=== PATIENT | female | born 2005 | race Caucasian/White ===

== ENCOUNTER 2023-02-06 14:29 | Outpatient (OUT) | payer OTHER, SELFPAY ==
[2023-02-06 16:15] LABS: Basophils Percent Auto 0.3 % (0.2-2.0); Eosinophils Absolute Auto 0.1 10^3/uL (0.0-0.7); Eosinophils Percent Auto 1.1 % (0.9-7.0); Hematocrit 35.5 % (36.0-48.0); Immature Granulocytes Abs Auto 0.04 10^3/uL (0.00-0.03); Immature Granulocytes Pct Auto 0.4 % (0.0-0.5); Lymphocytes Absolute Auto 1.8 10^3/uL (1.2-3.8); Lymphocytes Percent Auto 19.5 % (20.5-60.0); Mean Corpuscular HGB Conc 33.8 g/dL (29.9-35.2); Mean Corpuscular Hemoglobin 29.3 pg (26.7-34.0); Mean Corpuscular Volume 86.8 fL (81.0-99.0); Mean Platelet Volume 11.1 fL (9.5-13.5); Monocytes Absolute Auto 0.4 10^3/uL (0.3-0.8); Monocytes Percent Auto 4.6 % (1.7-12.0); Neutrophils Absolute Auto 6.7 10^3/uL (1.4-6.5); Neutrophils Percent Auto 74.1 % (43.0-75.0); Platelet Count 280 10^3/uL (150-450); Red Blood Count 4.09 10^6/uL (4.20-5.40); Red Cell Distribution Width 13.2 % (11.0-15.0)
[2023-02-06 16:31] LABS: Estimated Average Glucose 100 mg/dL; Glycohemoglobin A1C 5.1 % (4.5-6.2)
[2023-02-06 16:43] LABS: Glucose 1 Hour 149 mg/dL; Thyroid Stimulating Hormone 1.954 uIU/mL (0.516-4.130)
[2023-02-08 06:08] LABS: HBsAg Screen Negative (Negative); HCV Ab Non Reactive (Non Reactive); HIV Ab/p24 Ag Screen Non Reactive (Non Reactive)
[2023-02-08 07:08] LABS: Rubella Antibodies, IgG 1.05 index (Immune >0.99)
[2023-02-08 10:08] LABS: Rapid Plasma Reagin, Quant Non Reactive (NonRea<1:1)
== END 2023-02-06 14:30 | disposition home or self-care (01) ==
PROVIDERS: Visit Provider Obstetrics & Gynecology
DX: N91.2 Amenorrhea, unspecified (principal); Z13.1 Encounter for screening for diabetes mellitus
CPT/HCPCS: 36415; 82950; 83036; 84443; 85025; 86592; 86762; 86803; 86850; 86900; 86901; 87086; 87340; 87389

== ENCOUNTER 2023-02-08 13:53 | Outpatient (OUT) | payer OTHER, SELFPAY ==
--- NOTE | 2023-02-08 13:58 | US_ITS ---
[address] [address] Patient Name: COURT FONTANEZ MRN: [facility]:[id number] date: 2005 Sex: F Assigned Patient Location: US Current Patient Location: US Accession/Order Number: [id number] Exam Date: 02/08/2023 14:00 Report Date: 02/10/2023 10:04 At the request of: REBEL MOSS Procedure: US OB anatomy EXAMINATION: US OB anatomy HISTORY: ANATOMY Z34.92 COMPARISON: No relevant comparison available. TECHNIQUE: Transabdominal sonographic examination was performed for obstetrical and evaluation. FINDINGS: Number: 1 Heart Rate: 134.3 bpm H.B. /min Amniotic Fluid Volume: Subjectively normal Placental Location: ANTERIOR, grade 2; lower margin could not gate be identified during transabdominal evaluation. Cervix Length: Not performed. ANATOMY: Normal Structures - choroid plexus, orbits, midline falx, hard palate, four-chamber heart, RVOT, LVOT, stomach, kidneys, bladder, three-vessel cord, cervical spine, thoracic spine, lumbar spine, sacral spine, right upper extremity, left upper extremity, right lower extremity, left lower extremity. SUBOPTIMALLY SEEN: Lateral ventricles, cerebellum, posterior fossa, abdominal cord insertion ABNORMALITIES: Dilated right renal pelvis, 8 mm in diameter. BIOMETRY: BPD: 8.3 cm 33 weeks 2 days ; 8% HC: 30.7 cm 34 weeks 1 days; 4% AC: 28.1 cm 32 weeks 1 days; <3% FL: 6.2 cm 32 weeks 0 days; <3% EFW:1970.0 grams; <3% FL/AC: 21.9 FL/BPD: 74.6 HC/AC: 1.1 GESTATIONAL AGE: Age by EDC: 35 weeks 2 days EBONY by EDC: 03/13/2023 Age by current US: 32 weeks 6 days EBONY by current US: 03/30/2023 IMPRESSION: 1. Single live intrauterine with growth detailed above. 2. Estimated weight is less than 3rd percentile. 3. Suboptimal visualization of the lateral ventricles, cerebellum, posterior fossa, and abdominal cord insertion due to gestational age and position. 4. Lower margin of anterior placenta could not be identified, and cervical length was not evaluated since patient declined endovaginal ultrasound imaging. Electronically authenticated by: GEOFF APONTE Date: 02/10/2023 10:04
== END 2023-02-08 13:54 | disposition home or self-care (01) ==
PROVIDERS: Visit Provider Obstetrics & Gynecology
DX: Z34.92 Encounter for supervision of normal pregnancy, unspecified, second trimester (principal)
CPT/HCPCS: 76805

== ENCOUNTER 2023-02-13 14:44 | Outpatient (REF) | payer OTHER, SELFPAY | END 2023-02-13 14:45 | disposition home or self-care (01) | LOC: LAB 14:44 | PROVIDERS: PCP Physician Assistant; Visit Provider Physician Assistant | DX: O99.891 Other specified diseases and conditions complicating pregnancy (principal); Z3A.00 Weeks of gestation of pregnancy not specified; N89.8 Other specified noninflammatory disorders of vagina | CPT/HCPCS: 87081 ==

== ENCOUNTER 2023-03-13 04:55 | Inpatient (IN) | payer OTHER, SELFPAY ==
[2023-03-13] VITALS (25 sets, daily range): BP systolic 123–217; BP diastolic 74–155; PULSE 60–100; RESP 14–16; TEMP 35.6–36.5
--- NOTE | 2023-03-13 06:00 | PC.NURSE ---
During admission assessment, pt unable to answer questions for herself. Pt looks at for answer for her. answers all questions from the nurse and speaks over the pt.
[2023-03-13 07:14] LABS: Hematocrit 34.9 % (36.0-48.0); Hemoglobin 11.8 g/dL (12.0-16.0); Mean Corpuscular HGB Conc 33.8 g/dL (29.9-35.2); Mean Corpuscular Volume 85.7 fL (81.0-99.0); Mean Platelet Volume 11.6 fL (9.5-13.5); Platelet Count 277 10^3/uL (150-450); Red Blood Count 4.07 10^6/uL (4.20-5.40); Red Cell Distribution Width 13.6 % (11.0-15.0); White Blood Count 13.1 10^3/uL (4.0-11.0)
[2023-03-13] MEDS: 0.9 % SODIUM CHLORIDE 1,000 ML 1000 ML IV (08:41)
[2023-03-13] MEDS: OXYTOCIN 10 UNIT in 0.9 % SODIUM CHLORIDE 500 ML 6.012 UNIT IV (08:45)
[2023-03-13 10:24] LABS: Amphetamine Screen Urine NEGATIVE (NEGATIVE); Barbiturates Screen Urine NEGATIVE (NEGATIVE); Benzodiazepines Screen Urine NEGATIVE (NEGATIVE); Buprenorphine Screen Urine NEGATIVE (NEGATIVE); Cannabinoid Screen Urine NEGATIVE (NEGATIVE); Cocaine Screen Urine NEGATIVE (NEGATIVE); Methadone Screen Urine NEGATIVE (NEGATIVE); Methamphetamines Screen Urine NEGATIVE (NEGATIVE); Opiate Screen Urine NEGATIVE (NEGATIVE); Oxycodone Screen Urine NEGATIVE (NEGATIVE); Phencyclidine Screen Urine NEGATIVE (NEGATIVE); Tricyclic Antidepressant Urine NEGATIVE (NEGATIVE)
[2023-03-13] MEDS: ONDANSETRON 4 MG RAPDIS TABLET SL (12:02)
[2023-03-13] MEDS: LIDOCAINE HCL 1% 200 MG/20 ML MDV INJ (14:10)
--- NOTE | 2023-03-13 17:41 | PC.NURSE ---
1630 visitors in, pt smiling and talking appropriately, no longer appears to have flat affect, denies needs
--- NOTE | 2023-03-13 19:28 | W.PC.ACHO ---
Registration Status: ADM IN Primary Language: Cym[place] Preferred Language: Cymro Report received at 1900 Active Medications Generic Name Dose Route Start Last Admin Trade Name Freq PRN Reason Stop Dose Admin Acetaminophen 650 mg 03/13/23 14:51 Acetaminophen 325 Mg Tablet PO Q6H PRN Mild Pain Al Hydroxide/Mg Hydroxide 2,400 mg 03/13/23 14:51 Magnesium Hydroxide 2,400 Mg/10 Ml Oral.Susp PO Q6H PRN Dyspepsia Benzocaine/Menthol 1 applic 03/13/23 14:51 Benzocaine/Menthol 85 Gram Bottle TOPICAL ONCE PRN Pain Carboprost Tromethamine 250 mcg 03/13/23 04:57 Carboprost Tromethamine 250 Mcg/Ml 1 Ml Vial IM 03/14/23 15:00 Q15M PRN Bleeding Docusate Sodium 100 mg 03/14/23 09:00 Docusate Sodium 100 Mg Capsule PO BID EDUARDO Sodium Chloride 1,000 mls @ 125 mls/hr 03/13/23 05:00 Sodium Chloride 0.9% 1,000 Ml IV .Q8H EDUARDO Ibuprofen 600 mg 03/13/23 14:51 Ibuprofen 600 Mg Tablet PO Q6H PRN Moderate Pain Methylergonovine Maleate 0.2 mg 03/13/23 04:57 Methylergonovine Maleate 0.2 Mg Tablet PO 03/14/23 15:00 Q4H PRN Uterine Contractility/Contract Methylergonovine Maleate 0.2 mg 03/13/23 04:57 Methylergonovine Maleate 0.2 Mg/Ml Ampule IM 03/14/23 15:00 ONCE PRN Uterine Contractility/Contract Misoprostol 600 mcg 03/13/23 04:57 Misoprostol 100 Mcg Tablet PO 03/14/23 15:00 ONCE PRN Uterine Bleeding Misoprostol 800 mcg 03/13/23 04:57 Misoprostol 100 Mcg Tablet SL 03/14/23 15:00 ONCE PRN Uterine Bleeding Misoprostol 1,000 mcg 03/13/23 04:57 Misoprostol 100 Mcg Tablet NJ 03/14/23 15:00 ONCE PRN Uterine Bleeding Ondansetron HCl 4 mg 03/13/23 04:57 Ondansetron Pf 4 Mg/2 Ml Vial IV Q6H PRN Nausea And Vomiting Ondansetron HCl 4 mg 03/13/23 04:57 03/13/23 12:02 Ondansetron 4 Mg Rapdis Tablet SL 4 mg Q6H PRN Administration Nausea And Vomiting Senna 17.2 mg 03/13/23 20:00 Sennosides 8.6 Mg Tablet PO QHS PRN Constipation Simethicone 80 mg 03/13/23 14:51 Simethicone 80 Mg Tab.Chew PO QID PRN Abdominal Distention Temazepam 15 mg 03/13/23 20:00 Temazepam 15 Mg Capsule PO BEDTIME PRN Sleep Witch Paula/Glycerin 1 each 03/13/23 14:51 Glycerin/Witch Paula 1 Each Jar TOPICAL ONCE PRN Pain Diet Category Date Time Status Regular Consistency Diet Diet 03/13/23 Breakfast Active Consults Category Date Time Status Consult to Anesthesiology Routine Cons 03/13/23 Ordered Consult to Guest Services Representative Routine Cons 03/13/23 Ordered IV Insertion/Site Date of IV Line Insertion [22g 03/13/23 left Forearm] IV Insertion Time [22g left 08:42 Forearm] Neurology Patient orientation (short person,place,time,situation list)
--- NOTE | 2023-03-13 21:13 | PC.NURSE ---
Pt reflexes assessed. Upper DTRs unable to illicit. Lower DTRs +1. Clonus beat absent.
[2023-03-14] VITALS (11 sets, daily range): BP systolic 111–163; BP diastolic 59–105; PULSE 55–72; RESP 16–18; TEMP 35.7–36.9
[2023-03-14 06:50] LABS: Basophils Percent Auto 0.2 % (0.2-2.0); Eosinophils Absolute Auto 0.1 10^3/uL (0.0-0.7); Eosinophils Percent Auto 0.4 % (0.9-7.0); Hematocrit 33.6 % (36.0-48.0); Hemoglobin 11.2 g/dL (12.0-16.0); Immature Granulocytes Abs Auto 0.06 10^3/uL (0.00-0.03); Immature Granulocytes Pct Auto 0.5 % (0.0-0.5); Lymphocytes Absolute Auto 2.1 10^3/uL (1.2-3.8); Lymphocytes Percent Auto 16.2 % (20.5-60.0); Mean Corpuscular HGB Conc 33.3 g/dL (29.9-35.2); Mean Corpuscular Hemoglobin 28.8 pg (26.7-34.0); Mean Corpuscular Volume 86.4 fL (81.0-99.0); Mean Platelet Volume 11.6 fL (9.5-13.5); Monocytes Absolute Auto 0.7 10^3/uL (0.3-0.8); Monocytes Percent Auto 5.7 % (1.7-12.0); Neutrophils Absolute Auto 9.9 10^3/uL (1.4-6.5); Platelet Count 264 10^3/uL (150-450); Red Blood Count 3.89 10^6/uL (4.20-5.40); Red Cell Distribution Width 13.7 % (11.0-15.0); White Blood Count 12.9 10^3/uL (4.0-11.0)
--- NOTE | 2023-03-14 07:21 | W.PC.ACHO ---
Registration Status: ADM IN Primary Language: Citizen [place] Preferred Language: Citizen [place] report given 0710. Active Medications Generic Name Dose Route Start Last Admin Trade Name Freq PRN Reason Stop Dose Admin Acetaminophen 650 mg 03/13/23 14:51 Acetaminophen 325 Mg Tablet PO Q6H PRN Mild Pain Al Hydroxide/Mg Hydroxide 2,400 mg 03/13/23 14:51 Magnesium Hydroxide 2,400 Mg/10 Ml Oral.Susp PO Q6H PRN Dyspepsia Benzocaine/Menthol 1 applic 03/13/23 14:51 03/13/23 20:29 Benzocaine/Menthol 85 Gram Bottle TOPICAL 1 applic ONCE PRN Administration Pain Carboprost Tromethamine 250 mcg 03/13/23 04:57 Carboprost Tromethamine 250 Mcg/Ml 1 Ml Vial IM 03/14/23 15:00 Q15M PRN Bleeding Docusate Sodium 100 mg 03/14/23 09:00 Docusate Sodium 100 Mg Capsule PO BID EDUARDO Sodium Chloride 1,000 mls @ 125 mls/hr 03/13/23 05:00 Sodium Chloride 0.9% 1,000 Ml IV .Q8H EDUARDO Ibuprofen 600 mg 03/13/23 14:51 Ibuprofen 600 Mg Tablet PO Q6H PRN Moderate Pain Methylergonovine Maleate 0.2 mg 03/13/23 04:57 Methylergonovine Maleate 0.2 Mg Tablet PO 03/14/23 15:00 Q4H PRN Uterine Contractility/Contract Methylergonovine Maleate 0.2 mg 03/13/23 04:57 Methylergonovine Maleate 0.2 Mg/Ml Ampule IM 03/14/23 15:00 ONCE PRN Uterine Contractility/Contract Misoprostol 600 mcg 03/13/23 04:57 Misoprostol 100 Mcg Tablet PO 03/14/23 15:00 ONCE PRN Uterine Bleeding Misoprostol 800 mcg 03/13/23 04:57 Misoprostol 100 Mcg Tablet SL 03/14/23 15:00 ONCE PRN Uterine Bleeding Misoprostol 1,000 mcg 03/13/23 04:57 Misoprostol 100 Mcg Tablet LA 03/14/23 15:00 ONCE PRN Uterine Bleeding Ondansetron HCl 4 mg 03/13/23 04:57 Ondansetron Pf 4 Mg/2 Ml Vial IV Q6H PRN Nausea And Vomiting Ondansetron HCl 4 mg 03/13/23 04:57 03/13/23 12:02 Ondansetron 4 Mg Rapdis Tablet SL 4 mg Q6H PRN Administration Nausea And Vomiting Senna 17.2 mg 03/13/23 20:00 Sennosides 8.6 Mg Tablet PO QHS PRN Constipation Simethicone 80 mg 03/13/23 14:51 Simethicone 80 Mg Tab.Chew PO QID PRN Abdominal Distention Temazepam 15 mg 03/13/23 20:00 Temazepam 15 Mg Capsule PO BEDTIME PRN Sleep Witch Paula/Glycerin 1 each 03/13/23 14:51 03/13/23 20:28 Glycerin/Witch Paula 1 Each Jar TOPICAL 1 each ONCE PRN Administration Pain Diet Category Date Time Status Regular Consistency Diet Diet 03/13/23 Breakfast Active IV Insertion/Site Date of IV Line Insertion [22g 03/13/23 left Forearm] IV Insertion Time [22g left 08:42 Forearm] Respiratory Oxygen Delivery Method Room Air Oxygen Delivery Method Room Air Oxygen Delivery Method Room Air
--- NOTE | 2023-03-14 10:05 | PM.OBPN ---
OB - PN: Subj Subjective Patient comments: no complaints [place] status: doing well Exam Constitutional Vital Signs, click to edit/add: Last Vital Signs Temp 98.2 F 03/14/23 08:00 Pulse 67 03/14/23 08:00 Resp 18 03/14/23 08:00 BP 148/99 H 03/14/23 08:00 O2 Del Method Room Air 03/14/23 05:20 Documenting provider has reviewed patient's vital signs: yes Common normals: no apparent distress Respiratory Common normals: normal respiratory effort and clear to auscultation bilaterally Cardio Common normals: regular rate and regular rhythm GI Common normals: Normal to inspection, nondistended, normoactive bowel sounds present Extremity Common normals: normal to inspection, no clubbing, cyanosis or edema and no calf tenderness Results Labs Labs: Short CBC 03/14/23 Range/Units 06:23 WBC 12.9 H (4.0-11.0) 10^3/uL Hgb 11.2 L (12.0-16.0) g/dL Hct 33.6 L (36.0-48.0) % Plt Count 264 (150-450) 10^3/uL OB - PN: A/P Plan - Vaginal Delivery day: 1 Plan: routine care Time Spent with Patient Time: Total time spent is greater than 50% in coordination of care (as documented) at patient's floor/unit and/or counseling patient: Total time spent with greater than 50% in coordination of care (as documented) at patient's floor/unit and/or counseling patient: less than 15 minutes
--- NOTE | 2023-03-14 14:47 | SWNOTE1 ---
SW consulted due to mental health. SW spoke with nursing prior to meeting with pt and concerns about babies safety and moms interaction with baby. Nursing voiced she may have some social anxiety, history of seizure disorder as a child. At one point while nurse was in room, she asked pt if she wanted to hold baby and she stated no just put baby in crib. Baby spit up and pt did not do anything about it. Pt makes very little eye contact, slow to answer questions. Nursing spoke with pt about follow up appointment to be made for baby, and pt could not remember who she called. Nursing asked where father of baby went and pt was not sure and took several seconds to answer. At one point nursing also asked about pt's own medications and pt was not sure and wanted nurse to tell her what to take. Nursing has concerns for baby's safety at home. Pt also struggles to order her own food as well. SW met with pt and baby. Pt was holding baby during assessment. Pt lives at home with father of baby, and the father's sister's, grandfather, and father. Pt's support from her family is her aunt, everyone else lives in [place]. Pt stated father of baby's criselda is kind of a support for most part. Pt does have everything at home for baby. 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 SW spoke with her about help me grow services, but pt does not want people to be coming in, but she will look over resources. At this time pt voices no other needs. SW spoke with nursing again and nursing feels true concerns for baby, SW calling in referral to [facility].
--- NOTE | 2023-03-14 19:54 | W.PC.ACHO ---
Registration Status: ADM IN Primary Language: [place] Preferred Language: [place] Report given to Lopez Padilla RN. Care relinquished. Active Medications Generic Name Dose Route Start Last Admin Trade Name Dario PRN Reason Stop Dose Admin Acetaminophen 650 mg 03/13/23 14:51 Acetaminophen 325 Mg Tablet PO Q6H PRN Mild Pain Al Hydroxide/Mg Hydroxide 2,400 mg 03/13/23 14:51 Magnesium Hydroxide 2,400 Mg/10 Ml Oral.Susp PO Q6H PRN Dyspepsia Benzocaine/Menthol 1 applic 03/13/23 14:51 03/13/23 20:29 Benzocaine/Menthol 85 Gram Bottle TOPICAL 1 applic ONCE PRN Administration Pain Docusate Sodium 100 mg 03/14/23 09:00 Docusate Sodium 100 Mg Capsule PO BID EDUARDO Sodium Chloride 1,000 mls @ 125 mls/hr 03/13/23 05:00 03/14/23 18:00 Sodium Chloride 0.9% 1,000 Ml IV Not Given .Q8H EDUARDO Ibuprofen 600 mg 03/13/23 14:51 Ibuprofen 600 Mg Tablet PO Q6H PRN Moderate Pain Ondansetron HCl 4 mg 03/13/23 04:57 Ondansetron Pf 4 Mg/2 Ml Vial IV Q6H PRN Nausea And Vomiting Ondansetron HCl 4 mg 03/13/23 04:57 03/13/23 12:02 Ondansetron 4 Mg Rapdis Tablet SL 4 mg Q6H PRN Administration Nausea And Vomiting Senna 17.2 mg 03/13/23 20:00 Sennosides 8.6 Mg Tablet PO QHS PRN Constipation Simethicone 80 mg 03/13/23 14:51 Simethicone 80 Mg Tab.Chew PO QID PRN Abdominal Distention Temazepam 15 mg 03/13/23 20:00 Temazepam 15 Mg Capsule PO BEDTIME PRN Sleep Witch Paula/Glycerin 1 each 03/13/23 14:51 03/13/23 20:28 Glycerin/Witch Paula 1 Each Jar TOPICAL 1 each ONCE PRN Administration Pain Respiratory Oxygen Delivery Method Room Air Oxygen Delivery Method Room Air Oxygen Delivery Method Room Air
[2023-03-15] MEDS: DOCUSATE SODIUM 100 MG CAPSULE PO (08:04)
[2023-03-15 08:46] VITALS: BP 112/68; PULSE 64
[2023-03-15 08:51] VITALS: BP 112/68; PULSE 64; RESP 16; TEMP 36.8
[2023-03-15 09:26] VITALS: RESP 16
--- NOTE | 2023-03-15 09:53 | PC.NURSE ---
Mother and s.o watch purple cry video together, both in bed and admiring, talking softly to .
--- NOTE | 2023-03-15 10:09 | PM.OBPN ---
OB - PN: Subj Subjective Patient comments: no complaints [place] status: doing well Exam Constitutional Vital Signs, click to edit/add: Last Vital Signs Temp 98.2 F 03/15/23 08:51 Pulse 64 03/15/23 08:51 Resp 16 03/15/23 09:26 BP 112/68 03/15/23 08:51 O2 Del Method Room Air 03/14/23 23:35 Documenting provider has reviewed patient's vital signs: yes Common normals: no apparent distress Respiratory Common normals: normal respiratory effort and clear to auscultation bilaterally Cardio Common normals: regular rate and regular rhythm GI Common normals: Normal to inspection, nondistended, normoactive bowel sounds present Extremity Common normals: no clubbing, cyanosis or edema and no calf tenderness OB - PN: A/P Plan - Vaginal Delivery day: 2 Plan: routine care, discharge home and follow up 6 weeks Time Spent with Patient Time: Total time spent is greater than 50% in coordination of care (as documented) at patient's floor/unit and/or counseling patient: Total time spent with greater than 50% in coordination of care (as documented) at patient's floor/unit and/or counseling patient: less than 15 minutes
--- NOTE | 2023-03-28 12:47 | PM.OBPRCVD ---
Procedure Intrapartal events: None Induction method: per pitocin protocol Delivery augmentation: rupture of membranes and pitocin Delivery monitor: external FHT and external uterine Route of delivery: Episiotomy Description: none Laceration description: perineal - 2nd degree Delivery repair: Vicryl Estimated blood loss (mL): 250 Anesthesia type: None Disposition: floor Delivery date: 03/13/23 Gender: male presentation: vertex Placental delivery description: Spontaneous cord description: 3 Vessels Stage 1 Duration Labor - Stage 1 Duration: 4 hours and 50 minutes Labor State Duration Labor - Stage 2 Duration: 9 minutes Labor - Stage 3 Duration: 2 minutes Total Length of Labor: 5 hours and 1 minutes
== END 2023-03-15 16:30 | disposition home or self-care (01) | DRG 807 ==
PROVIDERS: Admitting Provider Obstetrics & Gynecology; PCP Physician Assistant; Visit Provider Obstetrics & Gynecology
DX: O70.1 Second degree perineal laceration during delivery (principal); Z37.0 Single live birth; Z3A.39 39 weeks gestation of pregnancy
CPT/HCPCS: 36415; 59050; 59410; 80307; 85025; 85027; 86850; 86900; 86901; 96374; 96375; 96376